=== PATIENT | male | born 1965 | race Caucasian/White ===

== ENCOUNTER 2016-11-26 07:13 | Observation (INO) | payer BC ==
[~2016-11-26] VITALS: Ht 182.9 cm; Wt 117.1 kg
--- NOTE | ~2016-11-26 | EKG ---
[place] [address] [facility] [employer] [place] [address] ELECTROCARDIOGRAM REPORT Name: CAMMY GRIJALVA Room #: 216-[facility] M.R.#: [id number] Admission: 11/26/16 Attend Phys: Kyle Kim MD, Discharge: Date of : 63 Report #: [id number] THIS REPORT FOR: //name// 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 FERNANDEZ : 1965 Requested By: Kyle Kim Order Number: [id number] MD: Hilton Trent Measurements Intervals [place] Rate: 56 P: 40 WI: 179 QRS: 71 QRSD: 96 T: 78 QT: 464 QTc: 448 Interpretive Statements Sinus rhythm Minimal ST depression, lateral leads Compared to ECG 12/21/2015 16:47:38 Inferior repolarization abnormality less prominent Electronically Signed On 11-26-2016 18:02:15 CDT by Hilton Trent [email or web address] <ELECTRONICALLY SIGNED> By: Hilton Trent MD, [facility] 11/26/16 180 1303 130 Hilton Trent MD, [facility] /EPI
--- NOTE | ~2016-11-26 | CATHLAB ---
[facility] [place] [address] INVASIVE PROCEDURE REPORT Name: CAMMY GRIJALVA Room #: 216-P [facility] IN .#: [id number] Admission: 11/26/16 Attend Phys: Kyle Kim, Discharge: 11/27/16 Date of : 63 Date of Service: 12/03/16 0946 Report #: [id number] THIS REPORT FOR: //name// APPROVED REPORT Patient Details Patient Status: Out-Patient Room #: The patient is a 50 year-old male Event Personnel Kyle Kim Recreation Assistant, Katy Montanez Penny, Wes RN, Janay Dutton RN RN, Bebeto Stearns Monitor Procedures Performed Left Heart Cath Coronaries, Bypass Grafts [id number] LHCCORCABG , PTCA with Stenting Procedure Narrative The Right Groin^ was infiltrated with 1% Lidocaine subcutaneous anesthesia. A PINNACLE 6FR Sheath #[id number] sheath was inserted into the right femoral artery. Coronary angiography was performed using coronary diagnostic catheters. The right coronary system was accessed and visualized with a JR4 catheter. The left coronary system was accessed and visualized with a JL4 catheter. The left ventricle was accessed and visualized with a PIGTAIL catheter. Left ventriculogram was performed in 30 degree projection. An aortogram of the abdominal aorta was performed. Closure device was deployed with a 6 Fr MYNXGRIP 6/7F #[id number]. The patient tolerated the procedure well and there were no complications associated with the procedure. There was no hematoma. Intraoperative Conscious Sedation Sedation start time: 8:39 Case end Time: 9:20 Fentanyl mcg Versed mg Fluoro Time: 1726.00 minutes Dose: 3812 mGy Contrast Type and Amount: Omnipaque 335 ml Hemodynamics The aortic pressure is 174/94 mmHg with a mean of 102 mmHg. The left ventricular pressure is 159/9 mmHg with a mean of mmHg. The left ventricular end diastolic pressure is 24 mmHg. [facility] [address] [place] [address] INVASIVE PROCEDURE REPORT Name: CAMMY GRIJALVA Room #: 216-P [facility] IN [facility].#: [id number] Admission: 11/26/16 Attend Phys: Kyle Kim, Discharge: 11/27/16 Date of : 63 Date of Service: 12/03/16 0946 Report #: [id number] PCI Technique Lesion Percutaneous coronary intervention was performed on the Unspecified. A LAUNCHER 6FR LCB #[id number] Guide Catheter was used to engage the OM ostium. A Luge Wire .014 x 182CM #[id number] Interventional Guidewire was used to cross the lesion. BALLOON DILATION A Balloon catheter Sprinter OTW 2.5 x 12 #[id number] was inserted and inflated up to 8.00atm for 32seconds. STENT DEPLOYMENT A drug-eluting stent RESOLUTE OTW 2.75 X 12 #[id number] was inserted and inflated up to 8.00atm for 32seconds. POST STENT DEPLOYMENT BALLOON DILATION A Balloon catheter was inserted and inflated up to 8.00atm for 32seconds. PCI Technique Lesion 2 Percutaneous Coronary Intervention was performed on the Unspecified. Conclusion #1 normal left ventricular size and systolic function EF 60% #2 abdominal aortogram revealing mild aortic ectasia no aneurysm renal arteries appear to be patent single bilateral. #3 essential total occlusion of the low left system subtotal distal left main filling trivial diagonal branch #4 KAUR to LAD is intact with minimal irregularity there is a 30-40% anastomotic lesion at a previously placed stent LAD extends to the apex #5 the sun'aq right essentially occluded distally #6 and SVG to the PDA filling a relatively small PDA CRISTY system with a 50% eccentric anastomotic lesion PDA is small diffusely diseased #7 SVG to OM 1 has a subtotal lesion in the distal graft or possible anastomotic site. #8 jump graft which was a radial off of this SVG went to a moderately large OM 3 widely patent #9 successful PTCA stent of the distal OM graft which may well be at the anastomotic site with placement of a resolute drug-eluting stent no significant residual ANIA grade 3 flow into the first OM branch Recommendations continue aggressive risk factor modification dual [address] [address] INVASIVE PROCEDURE REPORT Name: CAMMY GRIJALVA Room #: 216-P [facility] IN M.R.#: [id number] Admission: 11/26/16 Attend Phys: Kyle Kim, Discharge: 11/27/16 Date of : 63 Date of Service: 12/03/16 0946 Report #: [id number] antiplatelet therapy transfer to [facility] post-stent protocol. No lifting for 48 hours to line [facility] or [place] for a week. No MRI or dental work for 3 months. <ELECTRONICALLY SIGNED> By: Kyle Kim MD, FACC 12/03/16945 5 5 Kyle Kim MD, FACC /INF
--- NOTE | ~2016-11-26 | D ---
[facility] [place] [address] DISCHARGE SUMMARY Name: CAMMY GRIJALVA Room #: 216-P [facility] Samm M.R.#: [id number] Admission: 11/26/16 Attend Phys: Kyle Kim MD, Discharge: 11/27/16 Date of : 63 Report #: [id number] THIS REPORT FOR: //name// CC: [facility] COU[facility]SE: A 50-year-old male who was admitted with some stable anginal symptoms and abnormal stress echo. Subsequently taken to the catheterization lab, which revealed a high grade lesion. There was an SVG to a first OM and then there was a jump radial graft to an OM3. The anastomosis of the SVG to the OM1 is 99% subtotaled. There was a small PDA and also a graft to the PDA, which were patent and then the KAUR to the LAD was widely patent. The KAUR to the LAD had been previously stented. Subsequently, this was dilated and stented with a Resolute drug-eluting stent. This was a 2.75 x 12 across the anastomosis. This was postdilated to 18 atmospheres approaching 3.0 in size, 0% residual and ANIA grade 3 flow. There was minimal disease, otherwise as stated and LV function was preserved. He is up and ambulating, doing well. His laboratory work is unremarkable. LABORATORY WORK: Sodium 142, potassium 3.6, creatinine 1.1. Troponin was negative. His total cholesterol 112, his trigs were 156, his LDL was 54. This was higher in the office. We will obviously continue the statin. His H and H was 15 and 45. DISCHARGE MEDICATIONS: Include aspirin and Effient. Dual antiplatelet therapy at least 6 months. We will reevaluate. Bystolic 10 mg, Celexa, Lexapro 10, Tribenzor 40/01/22. We will restart rosuvastatin, we will increase to 20 mg. No lifting for 48 hours. No lying in tub, Jacuzzi or carrillo for a week. No MRI or dental work for 3 months. DISCHARGE DIAGNOSES: CAD with successful PTCA stent of a SVG to OM1 and anastomosis with a drug-eluting stent 2.75 x 12 Resolute to 3.0 mm. KAUR to LAD was intact. SVG to the PDA and [place] PDA were intact with moderate disease and relatively small. There was a radial jump graft off the SVG, OM1 to OM3 which was large and widely patent. The KAUR to LAD had been previously stented and this was widely patent. RECOMMENDATIONS AND PLAN: We will continue as stated above and followup is scheduled in 3 months. <ELECTRONICALLY SIGNED> By: Kyle Kim MD, FACC 11/28/16 1427 0907 0933 Kyle Kim MD, FACC /nt
--- NOTE | ~2016-11-26 | EKG ---
[address] [place] [address] ELECTROCARDIOGRAM REPORT Name: CAMMY GRIJALVA Room #: 216-P [facility] M.R.#: [id number] Admission: 11/26/16 Attend Phys: Kyle Kim MD, Discharge: Date of : 63 Report #: [id number] THIS REPORT FOR: //name// [facility] Test Date: 2016-11-26 Test Time: 07:46:52 Pat Name: CAMMY GRIJALVA Department: Room: [facility] Gender: M Acid Filler: ADONIS : 1965 Requested By: Kyle Kim Order Number: [id number] MD: Hilton Trent Measurements Intervals [place] Rate: 54 P: 27 ID: 175 QRS: 56 QRSD: 91 T: 92 QT: 447 QTc: 424 Interpretive Statements Sinus rhythm Inferior ST elevation Compared to ECG 12/21/2015 16:47:38 ST (T wave) deviation slightly more pronounced Electronically Signed On 11-26-2016 17:57:51 CDT by Hilton Trent [email or web address] <ELECTRONICALLY SIGNED> By: Hilton Trent MD, [facility] 11/26/161756 5 5 Hilton Trent MD, [facility] /EPI
[~2016-11-26 07:13] MED LIST: AMLODIPINE BESY10 MG PO; ASPIRIN325 PO; BENICAR HCT 401 EACH PO; BYSTOLIC10 MG PO; C-1000 WITH R1000 MG PO; CIALIS20 MG PO; CRESTOR20 MG PO; DIAZEPAM 10 MG10 M1; DILAUDID2 M1 PO; EFFIENT10 MG; FISH OIL 1,0001 EAC5; HOME MEDICATION PO; NIASPAN ER 101000 M1; OMEPRAZOLE20 M2 PO; VALACYCLOVIR1000 MG PO; VITAMIN D-32000 UNIT PO; VITAMINC500; ZOFRAN ODT4 MG PO; ZOLOFT 50 MG TA50 M1; ZOLOFT 50 MG TA50 M1 PO; [UNRECOGNIZED DRUG - OTHER] PO; [UNRECOGNIZED DRUG - OTHER] PO
[2016-11-26] MEDS ORDERED: TRIBENZOR 40-11 EAC1 PO (07:33)
[2016-11-26] MEDS ORDERED: LEXAPRO 10 MG T10 M1 PO (07:33)
[2016-11-26] MEDS ORDERED: VITAMIN D35000 UNI1 PO (07:36)
[2016-11-26 07:42] LABS: HEMATOCRIT 47.3 % (42.0-52.0); HEMOGLOBIN 16.6 gm/dL (14.0-18.0); MCHC 35.2 g/dL (28.0-37.0); MCV 85.1 fL (80.0-100.0); RBC 5.55 mil/uL (4.50-6.00); RDW 13.3 % (10.5-14.5); WBC 8.7 thou/uL (4.0-11.0)
[2016-11-26 07:51] LABS: CALCIUM 9.4 mg/dL (8.5-10.1); CREATININE 1.1 mg/dL (0.7-1.3); POTASSIUM 3.7 mmol/L (3.5-5.1)
[2016-11-26 07:58] VITALS: BP 170/90
[2016-11-26 10:10] VITALS: BP 186/108
[2016-11-26 15:54] VITALS: BP 165/93
[2016-11-26 19:27] VITALS: BP 148/87
[2016-11-27 00:43] VITALS: BP 148/86
[2016-11-27 03:04] LABS: HEMATOCRIT 45.2 % (42.0-52.0); HEMOGLOBIN 15.8 gm/dL (14.0-18.0); MCH 29.9 pg (26.0-34.0); MCHC 34.9 g/dL (28.0-37.0); MCV 85.7 fL (80.0-100.0); RBC 5.27 mil/uL (4.50-6.00); RDW 13.3 % (10.5-14.5); WBC 12.6 thou/uL (4.0-11.0)
[2016-11-27 03:25] LABS: ANION GAP 7 mmol/L (7-16); BUN 12 mg/dL (7-18); CALCIUM 9.2 mg/dL (8.5-10.1); CHLORIDE 105 mmol/L (98-107); CO2 30 mmol/L (21-32); CREATININE 0.9 mg/dL (0.7-1.3); GLUCOSE 93 mg/dL (74-106); POTASSIUM 3.6 mmol/L (3.5-5.1); SODIUM 142 mmol/L (136-145); TROPONIN-I 0.05 ng/mL (<0.04-0.07)
[2016-11-27 03:27] LABS: SERUM ASSESSMENT Clear
[2016-11-27 04:20] VITALS: BP 152/88
[2016-11-27 04:35] LABS: CHOLESTEROL 112 mg/dL (<200); HDL CHOLESTEROL 27 mg/dL (>40); LDL CHOLESTEROL 54 mg/dL (<100); TC:HDL 4.1 Ratio (Not establshd); TRIGLYCERIDE 156 mg/dL (<150); VLDL 31 mg/dL (<40)
[2016-11-27 07:23] VITALS: BP 175/96
[2016-11-27] MEDS ORDERED: EFFIENT10 MG PO (09:06)
[2016-11-27] MEDS ORDERED: BYSTOLIC10 MG PO (09:06)
[2016-11-27] MEDS ORDERED: ASPIRIN325 PO (09:06)
[2016-11-27] MEDS ORDERED: TRIBENZOR 40-11 EAC1 PO (09:06)
[2016-11-27 10:01] VITALS: BP 175/96
[2016-11-27 10:15] VITALS: BP 165/102
== END 2016-11-27 11:00 | disposition home or self-care (01) ==
LOC: CATH 07:13 → 2N 11:01 → CATH 12:26 → ENTRNSPT 11-27 10:51 → EDTRNSPTSTS 11-27 10:54 → 2N 11-27 11:00 → CMPTRNSPT 11-27 12:21
PROVIDERS: Internal Medicine Cardiovascular Disease
DX: I25.10 Atherosclerotic heart disease of native coronary artery without angina pectoris (principal); I10 Essential (primary) hypertension; E78.00 Pure hypercholesterolemia, unspecified; G89.29 Other chronic pain; Z87.891 Personal history of nicotine dependence; Z95.1 Presence of aortocoronary bypass graft

== ENCOUNTER 2019-04-01 14:24 | Inpatient (IN) | payer BC, OTHER ==
[~2019-04-01] VITALS: Ht 182.9 cm; Wt 116.6 kg
[~2019-04-01 14:24] MED LIST changes: +EFFIENT10 MG PO; +LEXAPRO 10 MG T10 M1 PO; +TRIBENZOR 40-11 EAC1 PO; +VITAMIN D35000 UNI1 PO
[2019-04-01 14:25] VITALS: BP 162/95
[2019-04-01 14:51] LABS: ABSOLUTE NEUTROPHILS 5.8 thou/uL (1.4-8.2); BASOPHILS 0.6 % (0.0-2.0); EOSINOPHILS 1.9 % (0.0-3.0); HEMATOCRIT 45.5 % (42.0-52.0); HEMOGLOBIN 15.6 gm/dL (14.0-18.0); LYMPHOCYTES 25.7 % (24.0-44.0); MCH 29.7 pg (26.0-34.0); MCHC 34.3 g/dL (28.0-37.0); MCV 86.6 fL (80.0-100.0); MONOCYTES 7.8 % (1.0-8.0); PLATELET COUNT 251 thou/uL (150-400); RBC 5.25 mil/uL (4.50-6.00); RDW 13.8 % (10.5-14.5)
[2019-04-01 15:01] LABS: CALCIUM 9.9 mg/dL (8.5-10.1); POTASSIUM 3.2 mmol/L (3.5-5.1)
[2019-04-01 15:11] LABS: ALBUMIN 4.2 g/dL (3.4-5.0); TOTAL BILIRUBIN 0.6 mg/dL (<0.1-1.0); TOTAL PROTEIN 7.8 g/dL (6.4-8.2)
[2019-04-01 15:15] LABS: TROPONIN-I 0.88 ng/mL (<0.06)
[2019-04-01 15:40] VITALS: BP 162/95
[2019-04-01 17:50] LABS: HEMATOCRIT 46.2 % (42.0-52.0); HEMOGLOBIN 15.6 gm/dL (14.0-18.0); MCH 29.2 pg (26.0-34.0); MCHC 33.8 g/dL (28.0-37.0); MCV 86.4 fL (80.0-100.0); RBC 5.35 mil/uL (4.50-6.00); RDW 13.7 % (10.5-14.5)
[2019-04-01 18:01] LABS: CALCIUM 9.3 mg/dL (8.5-10.1); CREATININE 0.9 mg/dL (0.7-1.3); POTASSIUM 3.3 mmol/L (3.5-5.1)
[2019-04-01 18:06] LABS: APTT 24.7 Seconds (24.5-32.8); PROTIME 10.4 Seconds (9.3-11.4)
[2019-04-01 18:12] LABS: TROPONIN-I 0.86 ng/mL (<0.06)
[2019-04-01 19:12] VITALS: BP 155/82
[2019-04-02] VITALS (16 sets, daily range): BP systolic 132–163; BP diastolic 68–92
[2019-04-02 05:28] LABS: CHOLESTEROL 142 mg/dL (<200); HDL CHOLESTEROL 24 mg/dL (>40); LDL CHOLESTEROL 71 mg/dL (<100); TC:HDL 5.9 Ratio (Not establshd); TRIGLYCERIDE 235 mg/dL (<150); VLDL 47 mg/dL (<40)
[2019-04-02 05:34] LABS: SERUM ASSESSMENT Clear
[2019-04-02] MEDS ORDERED: KLOR-CON 1010 MEQ PO (10:21)
[2019-04-02] MEDS ORDERED: EFFIENT10 MG PO (10:21)
[2019-04-02] MEDS ORDERED: BYSTOLIC20 MG PO (10:21)
--- NOTE | 2019-04-02 11:17 | CATHLAB ---
[facility] [place] [facility] [address] [place] [address] INVASIVE PROCEDURE REPORT Name: CAMMY GRIJALVA Room #: 212-P ADM IN ..#: [id number] Admission: 04/01/19 Attend Phys: Erica Alonso, Discharge: Date of : 63 Report #: [id number] THIS REPORT FOR: //name// APPROVED REPORT Study performed: 04/02/2019 07:32:37 Patient Details Patient Status: In-Patient Room #: 212 The patient is a 53 year-old male Event Personnel Hilton Trent Main Galley Scullion, Milena Cavazos RTR, DIRECTOR CHEMISTRY Monitor, Ila Prado RN, Yovana Deleon RTR Scrub Procedures Performed Art Access - R femoral artery* Left Heart Cath Coronaries, Bypass Grafts 4416322 LHCCORCABG SALENA Place w/wo Plasty Single RCA 597427 PTCA Single Vessel OM 1644439 PCISINGLE 550[address] Initial Mod Sed Same Phys/QHP Gr5y 441322 99690 Mod Sed Same Phys/QHP Ea 193102 Hemostasis w/ Mynx Indication Chest pain Procedure Narrative The patient was brought urgently to the Cardiac Catheterization Laboratory and was prepped and draped in a sterile manner. The Right Groin^ was infiltrated with 1% Lidocaine subcutaneous anesthesia. A PINNACLE 6FR Sheath #[id number] sheath was inserted into the RFA^. Coronary angiography was performed using coronary diagnostic catheters. The right coronary system was accessed and visualized with a JR4 catheter. The left coronary system was accessed and visualized with a JL4 catheter. The left ventricle was accessed and visualized with a ANGLED PIGTAIL catheter. Left ventricular/Aortic Valve gradient assessed via catheter pullback. Left ventriculogram was performed in 30 degree projection. Closure device was deployed with a 6 Fr MYNXGRIP 6/7F #[id number]. The patient tolerated the procedure well and there were no complications associated with the procedure. There was no hematoma. Intraoperative Conscious Sedation Sedation start time: 08:18 Case end Time: 10:[address] [address] INVASIVE PROCEDURE REPORT Name: RUDICAMMY Yuriy Room #: 212-P [facility] IN [facility]#: [id number] Admission: 04/01/19 Attend Phys: Erica Alonso, Discharge: Date of : 63 Report #: [id number] Fentanyl 100 mcg Versed 1 mg Fluoro Time: 31.80 minutes Dose: DAP 64822.00 cGycm2 6522 mGy Contrast Type and Amount: Omnipaque 375 ml Coronary Angiography The patient's coronary anatomy is right dominant. Diagnostic Cath Left Main Severe diffuse, long left main disease feeding a single, thready diagonal branch LAD Proximal LAD occlusion. Widely patent and angiographically normal KAUR to the LAD. Widely patent distal anastomotic site with good runoff into a large LAD system. Distal ROSA MARIA anastomotic stent widely patent, mild plaquing. Circumflex Proximal circumflex occlusion. "Y" graft with a patent segment to the distal marginal branch of the circumflex. The other arm of this "Y" graft was occluded and known to be anastomosed to a moderate sized high proximal first marginal Retrograde filling from the graft to the upper sioux circumflex and higher second marginal branch. There were faint left to left collaterals to the first marginal branch. Right Coronary Mid right occlusion. Patent vein graft to the distal right coronary. 80% stenosis in the mid body of this vein graft. High grade 80% distal vein graft stenosis prior to the anastomotic site to the right coronary Left Ventriculography The left ventricle is normal in size with normal contractility. The left ventricular ejection fraction is estimated to be 55-60%. Left ventricular wall motion abnormalities are not present. There is no mitral insufficiency. Hemodynamics The aortic pressure is 186/80 mmHg with a mean of 123 mmHg. The left ventricular pressure is 178/17 mmHg with a mean of mmHg. The left ventricular end diastolic pressure is 32 mmHg. PCI Technique Lesion Anticoagulation was achieved with Heparin, Integrilin. Patient was preloaded with Effient. Percutaneous coronary intervention was performed on the Proximal 1/3 and Distal 1/3 of RCA SVG. The lesion stenosis prior to intervention was 85% with ANIA 3 flow. A LAUNCHER [facility] [place] [facility] [address] [address] INVASIVE PROCEDURE REPORT Name: CAMMY GRIJALVA Room #: 212-P [facility] IN M.R.#: [id number] Admission: 04/01/19 Attend Phys: Erica Alonso, Discharge: Date of : 63 Report #: [id number] 6FR RCB #[id number] Guide Catheter was used to engage the right SVG ostium. A Luge Wire .014 x 182CM #015378 Interventional Guidewire was used to cross the lesion. BALLOON DILATION A Balloon catheter Euphora RX 2.5 x 12 #[id number] was inserted and inflated up to 8.00atm for 30seconds. Additional Inflation: 12.00atm for 30seconds. 2 separate sequential stenoses in the body of the vein graft, both ballooned and stented with 2.75 x 15 Resolute stents. STENT DEPLOYMENT A drug-eluting stent RESOLUTE RENUKA RX 2.75 X15 #[id number] was inserted and inflated up to 14.00atm for 31seconds. A second drug-eluting stent Resolute Renuka RX 2.75 x 15 was inserted and inflated up to 14 leann for 30 seconds in the proximal 1/3 of RCA SVG POST STENT DEPLOYMENT BALLOON DILATION A Balloon catheter TREK NC RX 2.75 X 12 #[id number] was inserted and inflated up to 18.00atm for 31seconds. Additional Inflation: 20.00atm for 19seconds. Additional Inflation: 22.00atm for 31seconds. Final angiography reveals 0 % stenosis with ANIA 3 flow. PCI Technique Lesion 2 Percutaneous Coronary Intervention was performed on the SVG to OM1. A LAUNCHER 6FR LCB #921238 Guide Catheter was used to engage the ostium. A Luge Wire .014 x 182CM #949527 Interventional Guidewire was used to cross the lesion. Balloon Dilation A Balloon catheter Euphora RX 2.5 x 12 #[id number] was inserted and inflated up to 8.00atm for 30seconds. Additional Inflation: 10.00atm for 36seconds. Additional Inflation: 10.00atm for 36seconds. Additional Inflation: 6 leann for 7 seconds Additional Inflation: 14 leann for 46 seconds Final angiography reveals 100 % stenosis with ANIA 0 flow. Comments This "Y" segment to the marginal branch appeared to be fibrotic and chronically occluded. Several balloon inflations within the body of the graft without zoroastrian of flow. Conclusion [facility] [place] [facility] [address] [place] [address] INVASIVE PROCEDURE REPORT Name: CAMMY GRIJALVA Room #: 212-P ADM [place] .R.#: [id number] Admission: 04/01/19 Attend Phys: Erica Alonso, Discharge: Date of : 63 Report #: [id number] 1. Normal global and regional left ventricular systolic function. Ejection fraction 65% 2. Severe upper sioux three-vessel coronary disease 3. Patent left internal mammary to the LAD. Widely patent distal ROSA MARIA stent to LAD 4. "Y" graft to the marginal branch with an occluded segment to a high marginal branch. This appeared to be a chronically occluded, fibrotic vessel. The vessel was wired and ballooned on multiple occasions without zoroastrian of flow 5. Patent vein graft to the right coronary with 2 sequential high-grade stenoses within the mid body of the graft, both stented with 2.75 x 15 Resolute medicated stents. Recommendations Cardiac Rehabilitation Referral Aggressive Medical Therapy <ELECTRONICALLY SIGNED> By: Hilton Trent MD, [facility] 04/02/19 1116 15 15 Hilton Trent MD, FACC /INF
--- NOTE | 2019-04-02 13:01 | EKG ---
[place] [address] [facility] [place] [place] [address] ELECTROCARDIOGRAM REPORT Name: CAMMY GRIJALVA Room #: 212-P ADM IN M.R.#: [id number] Admission: 04/01/19 Attend Phys: Erica Alonso MD Discharge: Date of : 63 Report #: [id number] THIS REPORT FOR: //name// [facility] ED Test Date: 2019-04-01 Test Time: 14:22:07 Pat Name: CAMMY GRIJALVA Department: Room: 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 : 1965 Requested By: Erica Alonso Order Number: [id number] MD: Hilton Trent Measurements Intervals [place] Rate: 58 P: 21 WI: 180 QRS: 53 QRSD: 94 T: 105 QT: 442 QTc: 435 Interpretive Statements Sinus bradycardia Left atrial enlargement Probable LVH with secondary repol abnrm Compared to ECG 11/26/2016 13:03:41 No significant change was found Electronically Signed On 04-02-2019 13:00:28 MANAGED SERVICES SALES CONSULTANT by Hilton Trent [email or web address] <ELECTRONICALLY SIGNED> By: Hilton Trent MD, [facility] 04/02/19 1300 1422 142 Hilton Trent MD, [facility] /EPI
--- NOTE | 2019-04-02 13:51 | EKG ---
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 : 1965 Requested By: Hilton Trent Order Number: [id number] MD: Hilton Trent Measurements Intervals [place] Rate: 60 P: 67 NV: 168 QRS: 77 QRSD: 111 T: 115 QT: 475 QTc: 475 Interpretive Statements Sinus rhythm Probable LVH with secondary repol abnrm Compared to ECG 11/26/2016 13:03:41 No significant change was found Electronically Signed On 04-02-2019 13:50:59 FRENCH POLISHER by Hilton Trent [email or web address] <ELECTRONICALLY SIGNED> By: Hilton Trent MD, [facility] 04/02/19 1350 1055 54 Hilton Trent MD, [facility] /EPI
[2019-04-03 05:03] LABS: HEMATOCRIT 43.1 % (42.0-52.0); HEMOGLOBIN 14.4 gm/dL (14.0-18.0); MCH 29.2 pg (26.0-34.0); MCHC 33.3 g/dL (28.0-37.0); MCV 87.6 fL (80.0-100.0); RBC 4.92 mil/uL (4.50-6.00); RDW 13.8 % (10.5-14.5); WBC 10.8 thou/uL (4.0-11.0)
[2019-04-03 05:06] VITALS: BP 154/82
[2019-04-03 05:58] LABS: ALBUMIN 3.6 g/dL (3.4-5.0); CALCIUM 9.4 mg/dL (8.5-10.1); POTASSIUM 3.5 mmol/L (3.5-5.1); TOTAL BILIRUBIN 0.6 mg/dL (<0.1-1.0); TOTAL PROTEIN 6.8 g/dL (6.4-8.2)
[2019-04-03 06:01] LABS: TROPONIN-I 0.98 ng/mL (<0.06)
[2019-04-03 07:10] VITALS: BP 153/91
[2019-04-03 09:35] VITALS: BP 153/91
--- NOTE | 2019-04-03 12:01 | EKG ---
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 04/03/19 [facility] 2 2 Hilton Trent MD, [facility] /EPI
== END 2019-04-03 11:08 | disposition home or self-care (01) | DRG 247 ==
LOC: ER 14:24 → 2N 15:30 → EROBS 15:30 → 2N 17:16
PROVIDERS: Emergency Medicine; Internal Medicine; ADMIT Internal Medicine
PROC: B2111ZZ Fluoroscopy of Multiple Coronary Arteries using Low Osmolar Contrast (ICD-10-PCS; principal; 2019-04-02)
PROC: 4A023N7 Measurement of Cardiac Sampling and Pressure, Left Heart, Percutaneous Approach (ICD-10-PCS; principal; 2019-04-02)
PROC: B21F1ZZ Fluoroscopy of Other Bypass Graft using Low Osmolar Contrast (ICD-10-PCS; principal; 2019-04-02)
PROC: 027135Z Dilation of Coronary Artery, Two Arteries with Two Drug-eluting Intraluminal Devices, Percutaneous Approach (ICD-10-PCS; principal; 2019-04-02)
PROC: B2151ZZ Fluoroscopy of Left Heart using Low Osmolar Contrast (ICD-10-PCS; principal; 2019-04-02)
PROC: B2181ZZ Fluoroscopy of Left Internal Mammary Bypass Graft using Low Osmolar Contrast (ICD-10-PCS; principal; 2019-04-02)
DX: I21.4 Non-ST elevation (NSTEMI) myocardial infarction (principal); I25.110 Atherosclerotic heart disease of native coronary artery with unstable angina pectoris; I10 Essential (primary) hypertension; K21.9 Gastro-esophageal reflux disease without esophagitis; E87.6 Hypokalemia; E78.5 Hyperlipidemia, unspecified; G89.29 Other chronic pain; I25.10 Atherosclerotic heart disease of native coronary artery without angina pectoris; M54.9 Dorsalgia, unspecified; E66.9 Obesity, unspecified; Z68.34 Body mass index [BMI] 34.0-34.9, adult; Z82.49 Family history of ischemic heart disease and other diseases of the circulatory system; Z87.891 Personal history of nicotine dependence; Z95.1 Presence of aortocoronary bypass graft; Z95.5 Presence of coronary angioplasty implant and graft; Z98.52 Vasectomy status; Z79.82 Long term (current) use of aspirin; Z79.899 Other long term (current) drug therapy
CPT/HCPCS: 10081

== ENCOUNTER → 2019-06-02 | Outpatient (CLI) | payer BC, OTHER ==
[~2019-06-02] MED LIST changes: +BYSTOLIC20 MG PO; +KLOR-CON 1010 MEQ PO
== END ==
LOC: SJCVCIMAG 10:05
DX: I25.89 Other forms of chronic ischemic heart disease (principal); I25.10 Atherosclerotic heart disease of native coronary artery without angina pectoris; E78.5 Hyperlipidemia, unspecified; I10 Essential (primary) hypertension; Z98.61 Coronary angioplasty status; Z95.1 Presence of aortocoronary bypass graft; Z79.899 Other long term (current) drug therapy; Z87.891 Personal history of nicotine dependence

== ENCOUNTER → 2019-06-10 | Outpatient (CLI) | payer BC, OTHER ==
[~2019-06-10] VITALS: Ht 182.9 cm; Wt 118.8 kg
[2019-06-10 10:44] VITALS: BP 161/90
--- NOTE | 2019-06-10 12:46 | EKG ---
[facility] [place] [address] ELECTROCARDIOGRAM REPORT Name: CAMMY GRIJALVA [facility] [id number] Admission: 06/10/19 Attend Phys: Kyle Kim MD, Discharge: Date of : 63 Report #: [id number] THIS REPORT FOR: cc: BRENDA CONTRERAS MD, JESSE MD Couchonnal, Luis F. MD ~ THIS REPORT FOR: //name// [facility] Test Date: 2019-06-10 Test Time: 11:07:50 Pat Name: CAMMY GRIJALVA Department: Room: Gender: Director Of Regional Sales: [facility] : 1965 Requested By: Kyle Kim Order Number: [id number] MD: Justino Mulligan Measurements Intervals [place] Rate: 54 P: 28 DC: 179 QRS: 40 QRSD: 93 T: 90 QT: 453 QTc: 430 Interpretive Statements Sinus rhythm Minimal ST depression, lateral leads Compared to ECG 04/03/2019 07:23:15 No significant changes Electronically Signed On 06-10-2019 12:45:04 CDT by Justino Mulligan [email or web address] <ELECTRONICALLY SIGNED> By: Justino Mulligan MD 06/10/19 1245 1107 1107 Justino Mulligan MD /EPI
--- NOTE | 2019-06-12 11:19 | CATHLAB ---
[facility] [place] [address] INVASIVE PROCEDURE REPORT Name: CAMMY GRIJALVA Room #: REG MAVERICK Pro.#: [id number] Admission: 06/10/19 Attend Phys: Kyle Kim MD, Discharge: Date of : 63 Report #: [id number] THIS REPORT FOR: cc: BRENDA CONTRERAS MD, JESSE MD Mancuso, Gerald M. MD [facility] ~ APPROVED REPORT Study performed: 06/10/2019 11:50:16 Patient Details Patient Status: Out-Patient Room #: The patient is a 53 year-old male Event Personnel Kyle Kim Tailman, Milena Cavazos RTR, DIRECTOR OF SECURITY Monitor, Sue Crews RN RN, Saurabh Sage RTR Scrub Procedures Performed Art Access - R femoral artery* Left Heart Cath Coronaries, Bypass Grafts [id number] LHCCORCABG 21005 Initial Mod Sed Same Phys/QHP Gr 346029 00881 Mod Sed Same Phys/QHP Ea [id number] Indication Positive stress test, Chest pain Procedure Narrative The Right Groin^ was infiltrated with 1% Lidocaine subcutaneous anesthesia. A PINNACLE 6FR Sheath #[id number] sheath was inserted into the RFA^. Coronary angiography was performed using coronary diagnostic catheters. The right coronary system was accessed and visualized with a JR4 catheter. The left coronary system was accessed and visualized with a JL4 catheter. The left ventricle was accessed and visualized with a Pigtail catheter. Left ventricular/Aortic Valve gradient assessed via catheter pullback. Left ventriculogram was performed in 30 degree projection. Closure device was deployed with a 6 Fr MYNXGRIP 6/7F #[id number]. The patient tolerated the procedure well and there were no complications associated with the procedure. There was no hematoma. Intraoperative Conscious Sedation Sedation start time: 13:06 Case end Time: 13:50 [facility] [place] [address] INVASIVE PROCEDURE REPORT Name: CAMMY GRIJALVA [id number] Admission: 06/10/19 Attend Phys: Kyle YuriyMarianne CespedesJudy, Discharge: Date of : 63 Report #: [id number] Fentanyl 100 mcg Versed 2 mg Fluoro Time: 6.00 minutes Dose: DAP 7775.00 cGycm2 979 mGy Contrast Type and Amount: Omnipaque 140 ml Hemodynamics The aortic pressure is 161/75 mmHg with a mean of 106 mmHg. The left ventricular pressure is 171/4 mmHg with a mean of mmHg. The left ventricular end diastolic pressure is 25 mmHg. Conclusion #1. Normal left ventricular size and systolic function EF 60% #2 the left main LAD is high-grade proximal disease long narrowing filling a small septal radio repairer the LAD is filled predominantly via the KAUR graft. This does fill the hopi diagonal system competitively. #3 the KAUR to LAD is large somewhat tortuous but widely patent and briskly filling a well preserved distal two thirds of the LAD which extends around the apex. There is retrograde and competitive filling into the diagonal system. #4 there is a vein graft which has an eccentric proximal lesion of 50% this is unchanged and briskly fills what appears to be a dominant circumflex PDA some retrograde filling of the circumflex. #5 hopi RCA is occluded in mid vessel. #6 SVG to PDA is intact mildly diseased filling a relatively small PDA CRISTY system somewhat of a codominant system as the large PDA of the circumflex is also filled as noted above Recommendations and plan: Continue aggressive risk factor modification. The recently placed stents in the SVG to the right are widely patent. There is no progression of disease. Patient symptomatology could be from some retrograde filling but there is no significant myocardium at risk based on the above cardiac catheterization. No indication for further intervention at this time. <ELECTRONICALLY SIGNED> By: Kyle Kim MD, [facility] 06/12/19 1118 17 17 Kyle Kim MD, FAC /INF
== END | disposition home or self-care (01) ==
LOC: SJCVCIMAG 10:04 → CATH 10:04 → SJCVCIMAG 14:38
DX: R07.9 Chest pain, unspecified (principal); I25.810 Atherosclerosis of coronary artery bypass graft(s) without angina pectoris; R94.39 Abnormal result of other cardiovascular function study; I10 Essential (primary) hypertension; E66.09 Other obesity due to excess calories; I25.2 Old myocardial infarction; E78.5 Hyperlipidemia, unspecified; K21.9 Gastro-esophageal reflux disease without esophagitis; Z98.890 Other specified postprocedural states; Z79.899 Other long term (current) drug therapy; Z98.52 Vasectomy status; Z95.1 Presence of aortocoronary bypass graft; Z87.891 Personal history of nicotine dependence

== ENCOUNTER → 2019-08-09 | Outpatient (CLI) | payer BC, OTHER | LOC: CAT 08-02 11:24 | DX: J98.11 Atelectasis (principal); K76.0 Fatty (change of) liver, not elsewhere classified; J84.10 Pulmonary fibrosis, unspecified; E27.9 Disorder of adrenal gland, unspecified; J98.4 Other disorders of lung; I51.7 Cardiomegaly ==

== ENCOUNTER 2020-01-13 15:15 | Emergency (ER) | payer BC, OTHER ==
[~2020-01-13] VITALS: Ht 182.9 cm; Wt 121.1 kg
--- NOTE | 2020-01-13 15:59 | EKG ---
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: ESHEETS : 1965 Requested By: Sreedhar Babb Order Number: [id number] MD: Stephan Molina Measurements Intervals [place] Rate: 56 P: 26 MA: 163 QRS: 45 QRSD: 88 T: 91 QT: 457 QTc: 442 Interpretive Statements Sinus rhythm Probable LVH with secondary repol abnrm Baseline wander in lead(s) II,aVR,aVF Compared to ECG 06/10/2019 11:07:50 ST (T wave) deviation no longer present Electronically Signed On 01-13-2020 15:58:46 CDT by Stephan Molina [email or web address] <ELECTRONICALLY SIGNED> By: Stephan Molina MD, FACC 01/13/20 1558 1534 1534 Stephan Molina MD, FAC /EPI
[2020-01-13 16:12] LABS: HEMATOCRIT 49.5 % (42.0-52.0); HEMOGLOBIN 16.5 gm/dL (14.0-18.0); MCH 28.8 pg (26.0-34.0); MCHC 33.2 g/dL (28.0-37.0); MCV 86.7 fL (80.0-100.0); PLATELET COUNT 269 thou/uL (150-400); RBC 5.71 mil/uL (4.50-6.00); RDW 14.1 % (10.5-14.5); WBC 11.5 thou/uL (4.0-11.0)
[2020-01-13 16:15] LABS: CALCIUM 9.3 mg/dL (8.5-10.1); POTASSIUM 3.9 mmol/L (3.5-5.1)
[2020-01-13 16:35] LABS: ABSOLUTE NEUTROPHILS 6.7 thou/uL (1.4-8.2); ATYPICAL LYMPHS 11 %; LARGE PLATELETS FEW
[2020-01-13] MEDS ORDERED: KEFLEX500 M1 PO (17:41)
[2020-01-13 17:51] VITALS: BP 137/78
== END 2020-01-13 17:51 | disposition home or self-care (01) ==
LOC: ER 15:15
PROVIDERS: Emergency Medicine
DX: R04.0 Epistaxis (principal); I10 Essential (primary) hypertension; I25.10 Atherosclerotic heart disease of native coronary artery without angina pectoris; K21.9 Gastro-esophageal reflux disease without esophagitis; E78.5 Hyperlipidemia, unspecified; Z95.1 Presence of aortocoronary bypass graft; Z79.899 Other long term (current) drug therapy; Z79.82 Long term (current) use of aspirin; Z87.891 Personal history of nicotine dependence

== ENCOUNTER 2020-01-18 11:49 | Inpatient (IN) | payer BC, OTHER ==
[~2020-01-18] VITALS: Ht 182.9 cm; Wt 103.9 kg
[~2020-01-18 11:49] MED LIST changes: +KEFLEX500 M1 PO
[2020-01-18 11:53] VITALS: BP 123/80
[2020-01-18 12:33] LABS: ABSOLUTE NEUTROPHILS 4.5 thou/uL (1.4-8.2); BASOPHILS 0.2 % (0.0-2.0); HEMATOCRIT 41.5 % (42.0-52.0); HEMOGLOBIN 14.4 gm/dL (14.0-18.0); MCH 29.7 pg (26.0-34.0); MCHC 34.8 g/dL (28.0-37.0); MCV 85.2 fL (80.0-100.0); MONOCYTES 8.8 % (1.0-8.0); PLATELET COUNT 185 thou/uL (150-400); RBC 4.87 mil/uL (4.50-6.00); RDW 13.7 % (10.5-14.5); WBC 6.2 thou/uL (4.0-11.0)
[2020-01-18 12:38] LABS: ANION GAP 10 mmol/L (7-16); BUN 15 mg/dL (7-18); CHLORIDE 96 mmol/L (98-107); CO2 27 mmol/L (21-32); CREATININE 1.1 mg/dL (0.7-1.3); GLUCOSE 101 mg/dL (74-106); POTASSIUM 3.5 mmol/L (3.5-5.1); SODIUM 133 mmol/L (136-145)
[2020-01-18 12:48] LABS: ALBUMIN 3.7 g/dL (3.4-5.0); SGOT 105 U/L (15-37); SGPT 60 U/L (30-65); TOTAL BILIRUBIN 0.7 mg/dL (0.2-1.0); TOTAL PROTEIN 7.6 g/dL (6.4-8.2); TROPONIN-I <0.06 ng/mL (<0.06)
[2020-01-18] MEDS ORDERED: ZPAK PO (13:12)
[2020-01-18] MEDS ORDERED: PROAIR HFA8.5 GM INH (13:12)
[2020-01-18] MEDS ORDERED: PROMETH-CODEIN 65 ML PO (13:12)
[2020-01-18 14:04] LABS: CHOLESTEROL 110 mg/dL (<200); HDL CHOLESTEROL 23 mg/dL (>40); LDL CHOLESTEROL 66 mg/dL (<100); TC:HDL 4.8 Ratio (Not establshd); TRIGLYCERIDE 106 mg/dL (<150); VLDL 21 mg/dL (<40)
[2020-01-18 14:29] LABS: TSH 2.351 uIU/mL (0.358-3.740)
--- NOTE | 2020-01-18 15:37 | EKG ---
[facility] [place] [address] ELECTROCARDIOGRAM REPORT Name: CAMMY GRIJALVA Room #: REG [facility]#: [id number] Admission: 01/18/20 Attend Phys: Discharge: Date of : 63 Report #: [id number] THIS REPORT FOR: cc: BRENDA CONTRERAS MD, JESSE MD Santiago, Patrick MD [facility] ~ THIS REPORT FOR: //name// 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
[2020-01-18 16:47] VITALS: BP 142/74
[2020-01-18 17:00] VITALS: BP 142/74
--- NOTE | 2020-01-18 17:05 | NUR ---
CALLED PT , INFORMED OF PT ROOM NUMBER & GAVE UNIT PHONE NUMBER TO
--- NOTE | 2020-01-18 18:37 | NUR ---
PATIENT ADMIT TO UIT AT 1645 FROM ER. A/O X4. SOB WITH EXCERTION. DENIES PAIN. WILL KEEP MONITOR.
[2020-01-18 19:45] VITALS: BP 159/80
--- NOTE | 2020-01-18 20:44 | NUR ---
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
--- NOTE | 2020-01-18 21:59 | NUR ---
PT RESING IN BED, SHALLOW BREATHING DIMINISHED LUNG SOUNDS, MINIMAL MOVEMENT. PROVIDER NOTIFIED PT REPORTS SOA. NEW ORDERS OBTAINED. PT INFORMED HE IS COVID POSITIVE. O2 PER NC 3L. PT PROVIDED HS SNACK. PT STEADY GAIT INDEPENDENT. LOVENOX PROVIDED. BP ELEVATED, PT STATED HE DID NOT TAKE HIS AM MEDS, BYSTOLIC ONE TIME DOSE PROVIDED, BP NOTED TO BE ELEVATED.
[2020-01-18 23:38] VITALS: BP 155/89
[2020-01-19 04:44] VITALS: BP 156/92
[2020-01-19 07:55] VITALS: BP 148/76
--- NOTE | 2020-01-19 11:07 | NUR ---
PT CARE ASSUMED AT 0700, PT ALERT AND ORIENTED X4, PT DENIES ANY PAIN, NAUSEA AND VOMITTING. COMPLAINS OF COUGH, DR. GREWAL PAGED ABOUT COUGH. PT IS ON 3L OF OXYGEN, NO SIGNS OF DISTRESS NOTED. PT IS UP AD JENNIFER TO BATHROOM. CALL LIGHT AND TABLE WITHIN REACH. DENIES ANY NEEDS AT THE MOMENT.
[2020-01-19 15:58] VITALS: BP 155/91
--- NOTE | 2020-01-19 16:05 | NUR ---
INITIAL ASSESSMENT: SW reviewed chart and spoke with nursing and attending physician. Pt was admitted from home due to cough. Pt with positive COVID test and placed in Enhanced Isolation. ID consulted. Pt is afebrile and on 1L of O2. Pt is on IV abx and IV steroids. SW placed call into pt's room. No answer. Per chart, pt is alert/orientated x 4. Pt lives at home with his . Pt is up ad ellie in his room. SW will follow up with pt at a later time and assist as needed with discharge planning.
[2020-01-19 16:14] VITALS: BP 154/80
[2020-01-19 20:12] VITALS: BP 153/76
--- NOTE | 2020-01-19 21:33 | NUR ---
PT PROGRESSING TOWARDS D/C GOALS VSS. AFEBRILE. SATS WNL. PT CONTINUES TO HAVE COUGH. WILL CONTINUE COUGH MEDICINE AND GET COUGH DROPS ORDERED. NO C/O PAIN. NO S/S DISTRESS. BED DOWN. CALL LIGHTIN REACH. SIDERAILS UP X2. SCDS ON. EXPLAINED TO PT TO CALL NS FOR ASSIST TO BR. URINE SENT TO LAB.
[2020-01-20 04:04] VITALS: BP 145/76; BP 166/76
[2020-01-20 04:06] VITALS: BP 170/79
--- NOTE | 2020-01-20 04:24 | NUR ---
[PT PROGRESSING TOWARDS D/C GOALS BP MODERATELY ELEVATED. AEBRILE.UNGS SOUND DIMINISHED AND UNLABORED ON 2LNC. SAT 95%. NO C/O PAIN. NO S/S DISTRESS. CONVALESCENT PLASMA INITIATED ORDERED. COVID TEST CAME BACK POSITIVE.
[2020-01-20 06:14] LABS: ABSOLUTE NEUTROPHILS 5.9 thou/uL (1.4-8.2); BASOPHILS 0.1 % (0.0-2.0); HEMATOCRIT 38.7 % (42.0-52.0); HEMOGLOBIN 12.9 gm/dL (14.0-18.0); LYMPHOCYTES 9.1 % (24.0-44.0); MCH 28.8 pg (26.0-34.0); MCHC 33.3 g/dL (28.0-37.0); MCV 86.4 fL (80.0-100.0); MONOCYTES 7.9 % (1.0-8.0); PLATELET COUNT 183 thou/uL (150-400); POLYS 82.9 % (36.0-66.0); RBC 4.48 mil/uL (4.50-6.00); RDW 13.7 % (10.5-14.5); WBC 7.1 thou/uL (4.0-11.0)
[2020-01-20 06:31] LABS: ALBUMIN 3.1 g/dL (3.4-5.0); CALCIUM 8.5 mg/dL (8.5-10.1); CREATININE 0.8 mg/dL (0.7-1.3); POTASSIUM 3.5 mmol/L (3.5-5.1); TOTAL BILIRUBIN 0.5 mg/dL (0.2-1.0); TOTAL PROTEIN 6.5 g/dL (6.4-8.2)
[2020-01-20 06:32] LABS: FIBRINOGEN 365.3 mg/dL (210-360); PROTIME 10.2 Seconds (9.3-11.4)
[2020-01-20 07:55] VITALS: BP 153/71
--- NOTE | 2020-01-20 13:08 | NUR ---
PT A&OX4, VSS, DENIES PAIN. NO N/V. PATIENT ON 3L OF OXYGEN. PATIENT TOLERATING DIET. PATIENT UP AD JENNIFER TO BATHROOM. IV PATENT RFA, ABX GIVEN. WILL CONTINUE TO MONITOR.
[2020-01-20 15:48] VITALS: BP 166/80
--- NOTE | 2020-01-20 15:54 | NUR ---
SW reviewed chart and spoke with nursing and attending physician. Pt remains in Enhanced Isolation due to COVID-19. Pt is afebrile and on 2L of O2. Pt is on IV abx and completing course of Remdesivir. Pt had convalescent plasma yesterday. SW spoke with pt via phone. Introduced role of SW. Pt is alert/orientated x 4. Pt reports he lives at home with his . Prior to admission, pt was independent with ADLs. No hx of services or post-acute placement. Pt's PCP is Dr. Pascual Rutledge. Plan is for pt to discharge home when medically stable. SW is following to assist as needed with discharge planning.
[2020-01-20 19:42] VITALS: BP 164/89
--- NOTE | 2020-01-20 21:57 | NUR ---
PT RESTING QUIETLY. BP MODERATELY ELEVATED. COUGH MEDICINE AND COUGH DROP GIVEN FOR C/O COUGH. WILL CONTINUE TO MONITOR FOR CHANGES. DR STEVENSON HERE TO SEE PT.
[2020-01-21 03:40] VITALS: BP 180/98
--- NOTE | 2020-01-21 05:40 | NUR ---
BP ELEVATED THIS AM. NOTIFIED Jhon BERNARD. HYDRALAZINE 10 PO GIVEN WELLAS COUGH MEDICINE AND COUGH DROP. NO OTHER C/O. NO S/S DISTRESS.
[2020-01-21 07:12] LABS: ALBUMIN 2.9 g/dL (3.4-5.0); CREATININE 0.7 mg/dL (0.7-1.3); DIRECT BILIRUBIN 0.1 mg/dL (<0.1-0.2); TOTAL BILIRUBIN 0.5 mg/dL (0.2-1.0); TOTAL PROTEIN 6.3 g/dL (6.4-8.2)
[2020-01-21 07:41] VITALS: BP 172/101
--- NOTE | 2020-01-21 16:02 | NUR ---
SW reviewed chart and spoke with nursing and attending physician. Pt remains in Enhanced Isolation due to COVID-19. Pt is afebrile and on 2L of O2. Pt is on IV abx and IV steroids. Pt is completing course of Remdesivir. Discharge home is anticipated on Friday. Pt was not on O2 prior to admission. No discharge needs identified at this time. YUE is following to assist should needs arise.
[2020-01-21 16:11] VITALS: BP 171/75
--- NOTE | 2020-01-21 17:12 | NUR ---
CONT ON ANTIVIRAL FOR COVID. HE HAS NOT VOICED COMPLAIN OF PAIN OR DISTRESS THROUGH THE DAY. HE IS ALERT ORIENTED X4. MINIMAL COUGH NOTED., WILL CONT WITH PLAN OF CARE.
[2020-01-21 20:24] VITALS: BP 169/91
--- NOTE | 2020-01-22 03:13 | NUR ---
Patient making progress towards outcome goals. SBP 160-170's. Denies pain. Up adlib. Gait steady. Patients states he feels improved overall. Oxygenation optimal with 2L/NC.
[2020-01-22 04:49] VITALS: BP 166/93
[2020-01-22 04:49] LABS: CREATININE 0.7 mg/dL (0.7-1.3); DIRECT BILIRUBIN 0.1 mg/dL (<0.1-0.2); TOTAL BILIRUBIN 0.5 mg/dL (0.2-1.0); TOTAL PROTEIN 6.2 g/dL (6.4-8.2)
[2020-01-22 08:27] LABS: ABSOLUTE NEUTROPHILS 6.5 thou/uL (1.4-8.2); BASOPHILS 0.5 % (0.0-2.0); HEMATOCRIT 39.6 % (42.0-52.0); HEMOGLOBIN 13.3 gm/dL (14.0-18.0); LYMPHOCYTES 7.8 % (24.0-44.0); MCHC 33.6 g/dL (28.0-37.0); MCV 86.3 fL (80.0-100.0); MONOCYTES 8.2 % (1.0-8.0); PLATELET COUNT 200 thou/uL (150-400); POLYS 83.5 % (36.0-66.0); RBC 4.58 mil/uL (4.50-6.00); RDW 13.9 % (10.5-14.5); WBC 7.8 thou/uL (4.0-11.0)
[2020-01-22 08:39] LABS: CALCIUM 8.8 mg/dL (8.5-10.1); CREATININE 0.8 mg/dL (0.7-1.3); MAGNESIUM 2.5 mg/dL (1.8-2.4); PHOSPHORUS 3.4 mg/dL (2.5-4.9); POTASSIUM 4.1 mmol/L (3.5-5.1)
[2020-01-22 08:49] VITALS: BP 177/92
[2020-01-22 10:02] LABS: LARGE PLATELETS OCCASIONAL
[2020-01-22 15:36] VITALS: BP 147/82
--- NOTE | 2020-01-22 18:22 | NUR ---
ASSUMED PATIENT CARE AT 0700. A/0 X4. TITRATED TO RA TOLERATED WELL. VSS. PROGRESSING TOWARDS POC GOALS.
[2020-01-22 20:21] VITALS: BP 177/94
[2020-01-23 03:34] VITALS: BP 160/89
--- NOTE | 2020-01-23 04:13 | NUR ---
Patient progressing well towards outcome gals. Oxygenation optimal on room air. Vital signs and rhythm stable. Denies pain. Up adlib without difficulty. Patient stated fe feels better overall.
[2020-01-23 05:56] LABS: ALBUMIN 3.1 g/dL (3.4-5.0); CREATININE 0.8 mg/dL (0.7-1.3); DIRECT BILIRUBIN 0.2 mg/dL (<0.1-0.2); TOTAL BILIRUBIN 0.6 mg/dL (0.2-1.0); TOTAL PROTEIN 6.4 g/dL (6.4-8.2)
[2020-01-23 07:46] VITALS: BP 168/92
[2020-01-23] MEDS ORDERED: LEVOFLOXACIN500 MG PO (13:51)
[2020-01-23] MEDS ORDERED: ZINC SULFATE 2220 MG PO (13:52)
[2020-01-23] MEDS ORDERED: VITAMIN B-12250 MC2 PO (13:53)
[2020-01-23] MEDS ORDERED: VITAMIN B-1100 M2 PO (13:53)
[2020-01-23] MEDS ORDERED: ASA81BEC PO (13:54)
[2020-01-23 14:31] VITALS: BP 168/92
== END 2020-01-23 15:30 | disposition home or self-care (01) | DRG 177 ==
LOC: ER 11:49 → 3W 17:00 → ER 17:00 → 3W 17:22
PROVIDERS: Internal Medicine; Physician Assistant; Specialist; ADMIT Hospitalist; ATTEND Hospitalist
PROC: XW033E5 Introduction of Remdesivir Anti-infective into Peripheral Vein, Percutaneous Approach, New Technology Group 5 (ICD-10-PCS; principal; 2020-01-19)
PROC: XW13325 Transfusion of Convalescent Plasma (Nonautologous) into Peripheral Vein, Percutaneous Approach, New Technology Group 5 (ICD-10-PCS; 2020-01-20)
PROC: XW033E5 Introduction of Remdesivir Anti-infective into Peripheral Vein, Percutaneous Approach, New Technology Group 5 (ICD-10-PCS; 2020-01-20)
PROC: XW033E5 Introduction of Remdesivir Anti-infective into Peripheral Vein, Percutaneous Approach, New Technology Group 5 (ICD-10-PCS; 2020-01-21)
PROC: XW033E5 Introduction of Remdesivir Anti-infective into Peripheral Vein, Percutaneous Approach, New Technology Group 5 (ICD-10-PCS; 2020-01-22)
PROC: XW033E5 Introduction of Remdesivir Anti-infective into Peripheral Vein, Percutaneous Approach, New Technology Group 5 (ICD-10-PCS; 2020-01-23)
DX: U07.1 COVID-19 (principal); J12.89 Other viral pneumonia; J96.01 Acute respiratory failure with hypoxia; E78.5 Hyperlipidemia, unspecified; I25.10 Atherosclerotic heart disease of native coronary artery without angina pectoris; I10 Essential (primary) hypertension; F32.9 Major depressive disorder, single episode, unspecified; K21.9 Gastro-esophageal reflux disease without esophagitis; E66.9 Obesity, unspecified; E53.8 Deficiency of other specified B group vitamins; E55.9 Vitamin D deficiency, unspecified; Z68.31 Body mass index [BMI] 31.0-31.9, adult; Z95.1 Presence of aortocoronary bypass graft; Z87.891 Personal history of nicotine dependence; Z95.5 Presence of coronary angioplasty implant and graft; Z79.01 Long term (current) use of anticoagulants; Z79.899 Other long term (current) drug therapy; Z23 Encounter for immunization
CPT/HCPCS: 10879

== ENCOUNTER 2020-02-04 22:24 | Emergency (ER) | payer BC, OTHER ==
[~2020-02-04] VITALS: Ht 185.4 cm; Wt 95.3 kg
[~2020-02-04 22:24] MED LIST changes: +ASA81BEC PO; +LEVOFLOXACIN500 MG PO; +PROAIR HFA8.5 GM INH; +PROMETH-CODEIN 65 ML PO; +VITAMIN B-1100 M2 PO; +VITAMIN B-12250 MC2 PO; +ZINC SULFATE 2220 MG PO; +ZPAK PO
[2020-02-05 03:11] LABS: HEMATOCRIT 37.4 % (42.0-52.0); HEMOGLOBIN 12.5 gm/dL (14.0-18.0); MCH 28.8 pg (26.0-34.0); MCHC 33.4 g/dL (28.0-37.0); MCV 86.3 fL (80.0-100.0); RBC 4.34 mil/uL (4.50-6.00); RDW 13.4 % (10.5-14.5); WBC 9.2 thou/uL (4.0-11.0)
[2020-02-05 03:16] LABS: POTASSIUM 3.8 mmol/L (3.5-5.1)
[2020-02-05 03:21] LABS: MAGNESIUM 1.7 mg/dL (1.8-2.4); TOTAL BILIRUBIN 0.3 mg/dL (0.2-1.0); TOTAL PROTEIN 7.2 g/dL (6.4-8.2)
[2020-02-05 03:41] LABS: URINE BILIRUBIN NEGATIVE (Negative); URINE BLOOD NEGATIVE (Negative); URINE CLARITY CLEAR; URINE COLOR YELLOW; URINE GLUCOSE-RANDOM* NEGATIVE (Negative); URINE KETONES NEGATIVE (Negative); URINE LEUKOCYTES-REFLEX NEGATIVE (Negative); URINE NITRITE-REFLEX NEGATIVE (Negative); URINE PROTEIN (DIPSTICK) NEGATIVE (Negative)
[2020-02-05] MEDS ORDERED: NORFLEX100 MG PO (05:48)
[2020-02-05] MEDS ORDERED: NAPROSYN500 MG PO (05:48)
[2020-02-05] MEDS ORDERED: NORCO 5-325 TA1 EAC2 PO (05:48)
[2020-02-05] MEDS ORDERED: TESSALON PERLE100 MG PO (08:11)
[2020-02-05 09:11] VITALS: BP 155/94
== END 2020-02-05 09:11 | disposition home or self-care (01) ==
LOC: ER 22:24
PROVIDERS: Emergency Medicine
DX: M25.552 Pain in left hip (principal); J18.9 Pneumonia, unspecified organism; I10 Essential (primary) hypertension; I25.10 Atherosclerotic heart disease of native coronary artery without angina pectoris; K21.9 Gastro-esophageal reflux disease without esophagitis; E78.5 Hyperlipidemia, unspecified; Z95.1 Presence of aortocoronary bypass graft; Z87.891 Personal history of nicotine dependence; Z79.82 Long term (current) use of aspirin; Z79.899 Other long term (current) drug therapy; X50.1XXA Overexertion from prolonged static or awkward postures, initial encounter; Y93.89 Activity, other specified; Y92.89 Other specified places as the place of occurrence of the external cause; Y99.8 Other external cause status

== ENCOUNTER → 2020-03-17 | Outpatient (CLI) | payer BC, OTHER ==
[~2020-03-17] MED LIST changes: +NAPROSYN500 MG PO; +NORCO 5-325 TA1 EAC2 PO; +NORFLEX100 MG PO; +TESSALON PERLE100 MG PO
== END ==
LOC: SJCVCIMAG 08:59
PROVIDERS: ATTEND Internal Medicine Cardiovascular Disease
DX: I51.7 Cardiomegaly (principal); I25.810 Atherosclerosis of coronary artery bypass graft(s) without angina pectoris; G47.33 Obstructive sleep apnea (adult) (pediatric); Z95.1 Presence of aortocoronary bypass graft

== ENCOUNTER → 2020-04-03 | Outpatient (CLI) | payer BC, OTHER | LOC: CAT 03-17 13:36 | PROVIDERS: ATTEND Specialist | DX: R06.02 Shortness of breath (principal); U07.1 COVID-19 ==

== ENCOUNTER → 2020-07-17 | Outpatient (CLI) | payer BC, OTHER | LOC: LAB 12:06 | PROVIDERS: ATTEND Internal Medicine | DX: Z01.812 Encounter for preprocedural laboratory examination (principal); Z20.822 Contact with and (suspected) exposure to COVID-19 ==

== ENCOUNTER → 2020-07-21 | Outpatient (CLI) | payer BC, OTHER ==
--- NOTE | 2020-07-31 06:57 | PFR/MVV ---
[facility] [place] [address] PULMONARY FUNCTION MVV/REPORT Name: CAMMY GRIJALVA Room #: REG [facility].#: [id number] Admission: 07/21/20 Attend Phys: Shabbir Babcock MD Discharge: Date of : 63 Report #: [id number] THIS REPORT FOR: //name// COPIES FOR: AGE: 54 SEX/RACE: M/C >> SPIROMETRY: (BTPS) Height: 70 in cm Weight: 279 lbs kg Exam Date: 07/21/20 PRE-RX POST-RX PRED BEST %PRED BEST %PRED %CHG FVC LITERS . 4.74 . 4.07 . 86 . 4.12 . 87 . 1 FEV1 LITERS . 3.42 . 3.09 . 90 . 3.23 . 95 . 5 FEV1/FVC % . 72 . 76 . 106 . 79 . 109 . 3 VWL40-60% L/Sec . 3.33 . 2.56 . 77 . 3.31 . 99 . 29 PEF L/SEC . 8.79 . 9.84 . 112 . 8.38 . 95 . -15 FEF50/FIF50 UNITLESS . <1.00. . 1.60 . . 1.56 . . -2 MVV L/Min . 147 . 76 . 52 f 1/Min . . 180 . >> LUNG VOLUMES: (BTPS) PRE-RX POST-RX PRED AVG %PRED AVG %PRED %CHG VC Liters . 4.74 . 4.07 . 86 . . . TLC Liters . 6.74 . 5.64 . 84 . . . RV Liters . 2.29 . 1.58 . 69 . . . RV/TLC % . 36 . 28 . [address] . . . [address] Liters . 3.00 . 2.00 . 67 . . . FRC N2 Liters . 3.00 . . . . . ERV Liters . 1.60 . 0.43 . 27 . . . IC Liters . 3.20 . 3.63 . 113 . . . >> DIFFUSION: DLCO ml/Min/mmHg . 31.0 . 26.1 . 84 . . . DL Kelin ml/Min/mmHg . 31.0 . 26.1 . 84 . . . DLCO/VA ml/Min/mmHg . 3.88 . 4.78 . 123 . . . VA Liters . 7.14 . 5.46 . 76 . . . [address] [address] PULMONARY FUNCTION MVV/REPORT Name: CAMMY GRIJALVA Room #: REG [facility] ApMarianne#: [id number] Admission: 07/21/20 Attend Phys: Shabbir Babcock MD Discharge: Date of : 63 Report #: [id number] COMMENTS: COMMENTS: >> RESISTANCE: PRE-RX PRED AVG %PRED Raw Total cmH20/L/Sec . . 4.29 . Raw Insp cmH20/L/Sec . . 1.26 . Raw Exp cmH20/L/Sec . . 1.24 . Raw cmH20/L/Sec . 1.57 . 1.96 . 125 Gaw L/Sec/cmH20 . 0.720 . 0.510 . 71 sRaw cmH20 Sec . 4.72 . 7.67 . 162 sGaw l/cmH20 Sec . 0.212 . 0.130 . 62 Vtq Liters . . 3.91 . # = OUTSIDE 95% CONFIDENCE INTERVAL CALIBRATION: PRED: 3.00 ACTUAL: EXP 3.01 INSP 3.02 [facility] [place] [address] N-1804-4 >> INTERPRETATION/IMPRESSION: PULMONARY FUNCTION STUDIES SPIROMETRY: FEV1 is 3.09 liters (90%), FVC is 4.07 liters (86%), FEV1/FVC ratio is 76%. There is no significant response to bronchodilator therapy. LUNG VOLUMES: Total lung capacity is 5.64 liters (84%). Diffusing capacity is 84%. IMPRESSION: Pulmonary function studies are normal. There is no obstruction to airflow. There is no significant response to bronchodilator therapy. Lung volumes and diffusing capacity are normal. <ELECTRONICALLY SIGNED> By: Nickolas Sharp MD 07/31/20 0657 Nickolas Sharp MD /nt
== END ==
LOC: PUL 08:38
PROVIDERS: ATTEND Internal Medicine
DX: R06.02 Shortness of breath (principal)